=== PATIENT | female | born 1945 | race Caucasian/White ===

== ENCOUNTER 2017-04-04 06:37 | Inpatient (IN) | payer OTHER ==
[2017-03-11 11:19] VITALS: BMI 36.0
--- NOTE | 2017-03-11 11:51 | PAT Medication Instructions ---
Service Date Mar 11, 2017. Current Home Medication List Albuterol Hfa (Ventolin Hfa), 2 PUFFS INH Q6H PRN for PRN Aspirin (Aspirin Ec), 81 MG PO HS Calcium/Vitamin D (Os-Derek 500 Plus D), 1 TAB PO BID Fish Oil ([place]-3), 1 CAP PO QAM Fluticasone Prop/Salmeterol (Advair Diskus 250-50 Mcg/Dose), 2 PUFF INH QAM Lisinopril (Zestril), 10 MG PO QAM Metformin Hcl (Glucophage), 850 MG PO QAM Multivitamin (Multivitamin), 1 TAB PO QAM Prednisone (Prednisone), 10 MG PO QAM Simvastatin (Zocor), 10 MG PO HS Theophylline Ext Rel (Dragan-Dur Ext Rel), 300 MG PO QAM Tiotropium [place] (Spiriva Handihaler), 1 CAP INH QAM Medication Instructions For Your Scheduled Surgery - Hold the following medications 2 weeks prior to surgery: Fish Oil ([place]-3), 1 CAP PO QAM - Hold the following medications 48 hours prior to surgery: Metformin Hcl (Glucophage), 850 MG PO QAM - Hold the following medications the morning of surgery: Lisinopril (Zestril), 10 MG PO QAM Multivitamin (Multivitamin), 1 TAB PO QAM Calcium/Vitamin D (Os-Derek 500 Plus D), 1 TAB PO BID - Take the following medications the morning of surgery with a sip of water OTHERWISE NOTHING TO EAT OR DRINK AFTER MIDNIGHT: Albuterol Hfa (Ventolin Hfa), 2 PUFFS INH Q6H PRN for PRN (use if needed; BRING TO HOSPITAL) Prednisone (Prednisone), 10 MG PO QAM Theophylline Ext Rel (Dragan-Dur Ext Rel), 300 MG PO QAM Tiotropium [place] (Spiriva Handihaler), 1 CAP INH QAM Fluticasone Prop/Salmeterol (Advair Diskus 250-50 Mcg/Dose), 2 PUFF INH QAM - Take the following medications as scheduled the night before surgery: Albuterol Hfa (Ventolin Hfa), 2 PUFFS INH Q6H PRN for PRN Simvastatin (Zocor), 10 MG PO HS Aspirin (Aspirin Ec), 81 MG PO HS Calcium/Vitamin D (Os-Derek 500 Plus D), 1 TAB PO BID If you have any questions please call us at [phone] or [phone] or [phone]
[2017-03-11 12:32] LABS: BASO % 0.2 %; BASO ABS # 0.02 K/uL (0-0.2); COMPLETE YES; EOS % 0.6 %; IG% 0.3 %; LYMPH ABS # 1.55 K/uL (1.2-3.4); MEAN CELL VOLUME 94.6 fL (80-100); MEAN CORPUSCULAR HEMOGLOBIN 30.9 pg (25-34); MEAN CORPUSCULAR HGB CONC 32.6 g/dl (32-36); MEAN PLATELET VOLUME 10.3 fL (7.4-10.4); MONO % 3.6 %; NEUT % 80.3 %; PLATELET COUNT 230 K/uL (130-400); RED BLOOD COUNT 4.44 M/uL (4.2-5.4); WHITE BLOOD COUNT 10.34 K/uL (4.8-10.8)
[2017-03-11 12:39] LABS: URINE APPEARANCE CLEAR (CLEAR); URINE BILIRUBIN NEG (NEG); URINE COLOR YELLOW; URINE NITRITE NEG (NEG); URINE SPECIFIC GRAVITY 1.021 (1.000-1.030); UROBILINOGEN NEG (NEG)
[2017-03-11 12:40] LABS: INR 0.9 (0.9-1.1); PARTIAL THROMBOPLASTIN RATIO 0.9
[2017-03-11 12:49] LABS: MANUAL MICROSCOPIC REQUIRED? NO; REVIEW REQ? NO
[2017-03-11 14:00] LABS: BUN/CREATININE RATIO 19.5 (10-20); CALCIUM 10.4 mg/dl (8.5-10.1); CREATININE 1.01 mg/dl (0.60-1.20); POTASSIUM 5.5 mmol/L (3.5-5.1)
--- NOTE | 2017-04-03 17:30 | HISTORY & PHYSICAL EXAMINATION ---
DATE OF ADMISSION: 04/04/2017 CHIEF COMPLAINT: Cuff arthropathy of the left shoulder. HISTORY OF PRESENT ILLNESS: Aurelia is a pleasant 71-year-old female who has been dealing with significant left shoulder pain. She initially injured her left shoulder when she fell underneath the car back in October. She has no significant decrease in range of motion of her shoulder since that time. X-rays have showed advanced osteoarthritis of her shoulder. She has a lot weakness of her rotator cuff and after failing conservative treatment, she elected to proceed with a reverse left total shoulder arthroplasty. PAST MEDICAL HISTORY: Significant for noninsulin dependent diabetes, hypertension, hyperlipidemia, asthma, osteoarthritis, and obesity. PAST SURGICAL HISTORY: Significant for bowel obstruction in 2009. MEDICATIONS: Include Spiriva 1 capsule daily, Advair 1 puff daily, metformin 850 mg twice a day, theophylline 300 mg as needed, lisinopril 10 mg daily, prednisone 5 mg daily, Ventolin inhaler as needed, simvastatin 10 mg daily, and aspirin 81 mg daily. ALLERGIES: None. FAMILY HISTORY: Noncontributory. SOCIAL HISTORY: She is single and lives alone. She never drinks. She denies any tobacco or IV drug use. She is very active. REVIEW OF SYSTEMS: She complains of left shoulder pain. All other pertinent review of systems is negative. PHYSICAL EXAMINATION: GENERAL: She is awake, alert and orient x3. She is in no apparent distress. She is very pleasant. HEENT: Pupils are equal, round and reactive to light. Extraocular movements intact. Oral mucosa is pink and moist. HEART: Regular rate per radial pulse. LUNGS: Marcia symmetrically bilaterally with no audible breath sounds. ABDOMEN: Soft, nontender, and nondistended. MUSCULOSKELETAL: On physical examination, she has decreased range of motion about 100 degrees of forward flexion and 100 degrees of abduction. She has crepitus throughout. She has 3/5 muscle strength with full can testing and 4/5 muscle strength with external rotation. Negative belly press test. IMAGING DATA: X-rays of the left shoulder do show advanced osteoarthritis with some posterior wear of the glenoid. There is joint space narrowing and osteophyte formation. IMPRESSION: Advanced osteoarthritis of the left shoulder with insufficient rotator cuff. PLAN: She has so much weakness on exam and given her age and her size, I am going to proceed with a reverse left shoulder arthroplasty. Postoperatively, she will be placed in an arm sling and kept overnight in the hospital for postoperative medical management.
[2017-04-04] VITALS (10 sets, daily range): BP systolic 92–150; BP diastolic 55–83; PULSE 74–96; TEMP 36.3–36.8; O2SAT 92–96; Ht 154.9 cm; Wt 86.1 kg
[~2017-04-04] VITALS: Ht 154.9 cm; Wt 86.1 kg
[2017-04-04] MEDS: TRANEXAMIC ACID INJ 1,000 MG in SYRINGE 0 ML IV SCH ×2 (06:30→08:20)
[~2017-04-04 06:37] MED LIST: ACETAMINOPHEN 500 MG TAB PO SCH; ADVIN25050 INH; ASPI81TA28 PO; CALC500C70 PO; CEFAZOLIN 2000MG IV PUSH 10 ML IV SCH; FAMOTIDINE 20 MG TAB PO SCH; GABAPENTIN 300 MG CAP PO SCH; LACTATED RINGER'S 1000ML 1,000 ML IV SCH; LACTATED RINGER'S 1000ML IV SCH; LISI-461 PO; METF-383 PO; MULT-506 PO; OMEG10007 PO; PRED-301 PO; ROPIVACAINE 5MG/ML 30 ML 150 MG, BUPIVACAINE 0.5% MPF INJ 30 ML, EpINEphrine HCL INJ 0.... INFIL SCH; SIMV10TA2 PO; SPRIN/30 INH; THEO300T14 PO; VNTHFA/IN INH
[2017-04-04] MEDS ORDERED: ROPIVACAINE 0.5% 5 MG/ML 30 ML VIAL ONE (06:40)
[2017-04-04] MEDS ORDERED: EpINEphrine INJ 1MG/ML AMP 1 MG/ML AMP ONE (06:40)
[2017-04-04] MEDS ORDERED: BUPIVACAINE 0.25% 30 ML VIAL ONE (06:40)
[2017-04-04] MEDS ORDERED: CLONIDINE HCL 100 MCG/ML SYRINGE ONE (06:42)
--- NOTE | 2017-04-04 06:42 | History & Physical Bridge Note ---
H&P Re-Evaluation Bridge Note: I have examined the patient, reviewed the History & Physical and in the interval since the performance of the History & Physical I have noted the following changes of clinical significance: No changes noted
[2017-04-04] MEDS ORDERED: ATROPINE SULFATE 0.1 MG/ML 5ML SYR IV PRN (07:30)
[2017-04-04] MEDS ORDERED: MEPERIDINE HCL 25 MG/ML CARP IV PRN (07:30)
[2017-04-04] MEDS ORDERED: FLUMAZENIL 0.1 MG/1 ML 10 ML VIAL IV PRN (07:30)
[2017-04-04] MEDS ORDERED: PHENYLEPHRINE 100MCG/ML 5ML SYR IV PRN (07:30)
[2017-04-04] MEDS ORDERED: ONDANSETRON INJ 2 MG/ML 2 ML VIAL IV PRN ×2 (07:30→10:30)
[2017-04-04] MEDS ORDERED: EpHEDrine SULFATE INJ 50 MG/ML AMP IV PRN (07:30)
[2017-04-04] MEDS ORDERED: NALOXONE HCL 0.4 MG/1 ML VIAL/CARP IV PRN ×2 (07:30→10:30)
[2017-04-04] MEDS ORDERED: FENTANYL CITRATE INJ 50 MCG/1 ML 2 ML VIAL IV PRN (07:30)
[2017-04-04] MEDS ORDERED: LABETALOL HCL IV 5 MG/ML 20ML IV PRN (07:30)
[2017-04-04] MEDS ORDERED: HYDROmorphone INJ 2 MG/ML SYR/VIAL IV PRN (07:30)
[2017-04-04] MEDS ORDERED: ORTHO JOINT ANESTHETIC ONE (08:12)
[2017-04-04] MEDS ORDERED: BACITRACIN 50000 UNIT VIAL ONE (08:13)
[2017-04-04] MEDS ORDERED: FENTANYL CITRATE INJ 50 MCG/1 ML 2 ML VIAL ONE (08:14)
[2017-04-04] MEDS ORDERED: MIDAZOLAM HCL 1 MG/ML 2ML VIAL ONE (08:14)
[2017-04-04] MEDS ORDERED: NovoLIN-R INSULIN PER UNIT CHARGE ONE ×2 (08:53→11:15)
[2017-04-04] MEDS ORDERED: HYDROCORTISONE SOD SUCCINATE 100 MG/2 ML VIAL ONE (09:08)
[2017-04-04] MEDS ORDERED: ESMOLOL HCL 10 MG/ML 10 ML VIAL ONE (09:08)
[2017-04-04] MEDS ORDERED: LIDOCAINE HCL 2% 2 ML VIAL (20MG/ML) ONE (09:40)
[2017-04-04] MEDS ORDERED: PROPOFOL IV EMULSION 10 MG/ML 20 ML VIAL IV ONE ×2 (09:40→09:51)
[2017-04-04] MEDS ORDERED: SUCCINYLCHOLINE CHLORIDE 20 MG/ML 10 ML VIAL IV ONE (09:40)
[2017-04-04] MEDS ORDERED: ONDANSETRON INJ 2 MG/ML 2 ML VIAL ONE (09:40)
[2017-04-04] MEDS ORDERED: EpHEDrine SULFATE 50MG/5ML SYR ONE (09:40)
[2017-04-04] MEDS ORDERED: PHENYLEPHRINE HCL INJ 10 MG/ML VIAL ONE (10:09)
--- NOTE | 2017-04-04 10:20 | [facility] Post Operative Brief Note ---
Immediate Operative Summary Operative Date Apr 04, 2017. Pre-Operative Diagnosis Advanced osteoarthritis of the left shoulder with insufficient rotator cuff. Post-Operative Diagnosis Advanced osteoarthritis of the left shoulder with insufficient rotator cuff. Procedure(s) Performed Left Reverse Total Shoulder Arthroplasty Surgeon Jorden Basketball Coach Surgeon(s) Sam Duncan PA-C Estimated Blood Loss 200ml Findings as above Specimens A: Left Humeral Head- bone and tissue Complication(s) None Disposition Recovery Room / PACU
[2017-04-04] MEDS ORDERED: METOCLOPRAMIDE HCL INJ 5 MG/ML 2 ML VIAL IV PRN (10:30)
[2017-04-04] MEDS ORDERED: SOD PHOSPHATE/SOD BIPHOSPHATE ENEMA 132 ML BTL PR PRN (10:30)
[2017-04-04] MEDS ORDERED: GLUCOSE 10 TABS/TUBE PO PRN (10:30)
[2017-04-04] MEDS ORDERED: ACETAMINOPHEN IV 1,000 MG in EMPTY BAG 0 ML IV SCH (10:30)
[2017-04-04] MEDS ORDERED: GLUCAGON FOR INJ 1 MG VIAL SQ PRN (10:30)
[2017-04-04] MEDS ORDERED: BISACODYL 10 MG SUPP PR PRN (10:30)
[2017-04-04] MEDS ORDERED: ALBUTEROL HFA 8 GM INHALER INH PRN (10:30)
[2017-04-04] MEDS ORDERED: GLUCOSE 40% GEL 15 GM TUBE PO PRN (10:30)
[2017-04-04] MEDS ORDERED: DEXTROSE 50% 50 ML SYR IV PRN (10:30)
[2017-04-04] MEDS ORDERED: OXYCODONE HCL IR 5 MG TAB (IMMEDIATE RELEASE) PO PRN (10:30)
[2017-04-04] MEDS ORDERED: MAGNESIUM HYDROXIDE SUSP 30 ML UDC PO PRN (10:30)
[2017-04-04] MEDS ORDERED: MoRPHine SULFATE 2 MG/ML CARP IV PRN (10:30)
--- NOTE | 2017-04-04 11:14 | DIAGNOSTIC IMAGING REPORT ---
L SHOULDER MIN 2 VIEWS ROUTINE HISTORY: 71 years-old Female Post shoulder surgery status post left shoulder arthroplasty. Degenerative joint disease. COMPARISON: Left shoulder radiographs 03/03/2017, CT chest 03/05/2017. TECHNIQUE: 2 views of the left shoulder FINDINGS: Postoperative changes compatible with reverse left shoulder total joint arthroplasty. There is satisfactory alignment. No periprosthetic fracture or retained foreign body. Skin martha and surgical drain in place with expected postsurgical swelling and deep tissue air. There is blunting of the left costophrenic angle with linear subsegmental opacities suggesting atelectasis and/or scarring. IMPRESSION: Status post reverse left total shoulder arthroplasty without complication identified. The above report was generated using voice recognition software. It may contain grammatical, syntax or spelling errors. Electronically signed by: Kip Cordova M.D. 04/04/2017 11:13 AM Dictated Date/Time: 04/04/2017 11:11 AM
[2017-04-04] MEDS ORDERED: NURSING VERBAL MED ORDER ONE (11:30)
--- NOTE | 2017-04-04 12:11 | Anesthesiology Progress Note ---
Anesthesia Post Op Note Date & Time Apr 04, 2017 at 12:10 Vital Signs Pain Intensity: 0 Vital Signs Past 12 Hours Date Time Temp Pulse Resp B/P (MAP) Pulse Ox O2 Delivery O2 Flow Rate FiO2 04/04/17 11:25 36.6 89 16 103/57 93 Nasal Cannula 3 04/04/17 11:15 89 16 100/60 96 Room Air 04/04/17 11:05 85 16 100/58 95 Oxymask 10 04/04/17 10:55 90 16 106/67 96 Oxymask 10 04/04/17 10:46 36.5 98 16 95/60 96 Oxymask 10 04/04/17 08:06 93 16 92 Room Air 04/04/17 07:08 36.7 96 20 150/83 94 Room Air Notes Mental Status: alert / awake / arousable, participated in evaluation Pt Amnestic to Procedure: Yes Nausea / Vomiting: adequately controlled Pain: adequately controlled Airway Patency, RR, SpO2: stable & adequate BP & HR: stable & adequate Hydration State: stable & adequate Anesthetic Complications: no major complications apparent The patient did well. She was given insulin preoperatively and in the PACU for elevated BSG.
[2017-04-04] MEDS ORDERED: PHARMACY GLYCEMIC MGMT CONSULT PRN (12:18)
[2017-04-04] MEDS ORDERED: INSULIN GLARGINE SOLOSTAR 100 UNITS/ML 3 ML PEN SC ONE ×3 (12:30→21:00)
--- NOTE | 2017-04-04 12:37 | OPERATIVE REPORT ---
DATE OF OPERATION: 04/04/2017 PREOPERATIVE DIAGNOSIS: Severe osteoarthritis with insufficient rotator cuff of the left shoulder. POSTOPERATIVE DIAGNOSIS: Same. PROCEDURE: Left reverse total shoulder arthroplasty. SURGEON: Dr. Emilio Leonardo. COLORECTAL SURGEON: Sam Duncan PA-C, whose assistance was necessary for positioning of the arm and helping with instrumentation. ANESTHESIA: General with left interscalene nerve block. COMPLICATIONS: None. CONDITION: Stable to PACU. IMPLANTS USED: I used a [employer] comprehensive reverse left total shoulder arthroplasty system with a size 9 mini stem, a size 25 mm mini baseplate with superior and inferior locking screws and a central screw, a 36 mm standard eccentric glenosphere and a standard humeral tray and bearing. INDICATIONS: Aurelia is a pleasant 71-year-old female who has been having shoulder pain, but then fell recently and has been unable to raise her arm. X-rays and clinical examination were diagnostic for severe arthritis with possible cuff tear. She is a fairly obese. She cannot raise her arm and given her age, I thought she would do best with a reverse shoulder replacement regardless of her rotator cuff. OPERATION AND FINDINGS: On 04/04/2017, she arrived at [facility] for the above procedure. She was seen in the preoperative holding area and the operative extremity was identified and signed. She was given a preoperative antibiotic and a left interscalene nerve block. She was taken back to the operating room, laid on the table in supine position and put under general anesthesia. She was then put into the beachchair position. The left shoulder was prepped and draped in sterile fashion. Time-out was done and the patient and operative extremity was properly identified. A deltopectoral approach was used. Dissection was taken down through the fascia and the anterior shoulder was exposed. The long head of the biceps tendon was tenotomized and the subscapularis was tenotomized off the lesser tuberosity with a centimeter of cuff tissue remaining. The proximal humerus was exposed. There were some of the supraspinatus was still intact, but I just released it for better exposure. The infraspinatus and teres minor of course were left intact. A canal finding reamer was sent down the center of the humeral canal. Sequential reaming up to a size 9 reamer was done. Off that reamer, a proximal humeral resection guide was placed. The proximal humerus was resected at 135 degrees of inclination and 20 degrees of retroversion. The head was removed and the glenoid was exposed. Time was spent doing a complete circumferential capsular and labral release. The guide was placed in the center of the glenoid and a guide pin was placed in 10 degrees of inclination. The 25 mm mini base plate was then reamed and the final baseplate was then impacted into place. A 25 mm central screw was placed followed by superior and inferior locking screw. A 36 mm eccentric glenosphere was then impacted into place. The proximal humerus was then exposed. Sequential broaching up to a size 9 broach was done. A standard humeral trial was used. The shoulder was reduced, brought through a full range of motion and felt to be stable. The trials were then removed and the final size 9 mini stem was impacted into place and the standard humeral tray and bearing were snapped together and the ring lock mechanism was engaged. The humeral tray was placed on the humeral stem, the shoulder was reduced, brought through a full range of motion and felt to be stable. The subscapularis was then tenodesed back to the lesser tuberosity with transosseous FiberWire sutures and [id number] sutures. The wound was then irrigated with 3 liters of normal saline solution with bacitracin. The surrounding soft tissues were injected with 100 mL of orthopedic pain control cocktail. A drain was placed. Skin was closed with 2-0 Vicryl, 3-0 V-Loc suture and martha. She was then placed in a soft dressing and a regular arm sling. She was then extubated, transferred to a [facility] and taken to the postanesthesia care unit in stable condition. She tolerated the procedure well. I attest to the content of the Intraoperative Record and any orders documented therein. Any exception s are noted below.
--- NOTE | 2017-04-04 12:47 | Pharmacy Progress Note ---
Glycemic Control Intl Consult Date of Service Apr 04, 2017. Scope Glycemic Pharmacist consulted by Dr Leonardo on 04/04/17 for glycemic control and to write orders per [facility] inpatient glycemic control protocol Objective Weight (Kilograms): 86.10 Accuchecks BSG (last 24hrs): Test 04/04/17 06:57 04/04/17 10:48 04/04/17 12:22 Bedside Glucose 163 mg/dl (70-90) 220 mg/dl (70-90) 173 mg/dl (70-90) Recent Pertinent Medications Outpatient Anti-diabetic Regimen: * metformin 850 mg PO daily Risk Factors for Insulin Resistance: * Steroids: hydrocortisone 100 mg IV x 1 intraoperatively, dexamethasone 4 mg topically * Recent Surgery: POD 0 for shoulder surgery * Diet: type 2 diabetic diet Assessment & Plan ASSESSMENT: * ADA & AACE recommend a goal blood sugar range 140-180 mg/dl for the majority of critically ill & non-critically ill patients. However, more stringent targets may be selected in individual cases. Will utilize more stringent goal of 110-140mg/dl based on patient age & comorbidities. Additionally, tighter glycemic control is warranted to facilitate wound healing. * Ms Del Rosario is a 71 y/o F with a PMH of hypertension, asthma, and obesity who presents for shoulder surgery. She chronically takes prednisone 10 mg PO daily and was given stress dosing of hydrocortisone today. Rita-operatively, the patient's blood sugar was 163 mg/dL and post-operatively 220 mg/dL. She received a total of 7 units of regular insulin around surgery. * Since the patient received hydrocortisone (not dexamethasone), the patient's blood sugar will still be affected but not for as long. Between weight-based stress of 2 and 3 full 24 hour dose will be given now for Lantus. A scale is available for this evening. It is unclear how the patient will respond to hydrocortisone and Lantus dosing therefore a higher dose scale will be available for tomorrow morning with lowest-dose being full 24 hour weight-based stress of 1. * For Novolog, steroids were still administered to the patient therefore will utilize weight-based stress of 3 for all coverage including overnight checks. This will be loosened in subsequent days as the effects of the steroids is diminished. * Pt is maintained on oral antidiabetic agents as an outpatient * Oral agents are not recommended for inpatient use d/t drug interactions, changing PO intake, and difficulty titrating for acute hyper/hypoglycemia. ADA recommends re-initiating outpatient oral agents 1-2 days prior to discharge if/ when appropriate if they were held on admission. * Will hold oral agents for admission and utilize SQ basal bolus insulin regimen which is the recommended regimen for inpatient glycemic control. * Will initiate weight based insulin dosing for insulin gisselle patient and titrate based on BSG trends. PLAN FOR INPATIENT GLYCEMIC CONTROL: * Holding outpatient oral diabetes medications - restart POD 2 or 3 * Basal insulin with LANTUS 35 units SQ x 1 then 0-15 units SQ hs; for POD 1 : Lantus 15-30 units SQ x 1 in the morning. Evening dose to be determined by patient response * Correctional Insulin with NOVOLOG per scale ACHS or Q6hrs while NPO * Goal Range: Low 110 mg/dL - High 140 mg/dL * Correction Factor: 20 mg/dL/unit * Nutritional / Prandial insulin per carb ratio of 1 unit per 6 grams CHO consumed * Please note that the plan above was derived based on current level of insulin resistance and hospital stress. These recommendations are appropriate for inpatient admission only. Plan of care upon discharge will need to be reassessed to avoid potential outpatient hypo/hyperglycemia. Thank you.
[2017-04-04] MEDS: POTASSIUM CHLORIDE INJ 10 MEQ in SODIUM CHLORIDE 0.9% 1000ML 1,000 ML IV SCH ×2 (13:14→22:28)
[2017-04-04] MEDS: INSULIN ASPART 100 UNITS/ML 3 ML PEN SC SCH ×3 (13:19→21:08)
[2017-04-04] MEDS: KETOROLAC TROMETHAMINE 15 MG/ML VIAL IV. SCH ×2 (14:08→20:41)
[2017-04-04] MEDS: ACETAMINOPHEN IV 1,000 MG in EMPTY BAG 0 ML IV SCH ×2 (14:37→22:25)
[2017-04-04] MEDS: CALCIUM 600MG + VIT D 400 IU TAB PO SCH (20:41)
[2017-04-04] MEDS: CEFAZOLIN IV 2,000 MG in SYRINGE 0 ML IV SCH (20:41)
[2017-04-04] MEDS: DOCUSATE SODIUM 100 MG CAP PO SCH (20:42)
[2017-04-04] MEDS ORDERED: ASPIRIN 81 MG ECTAB PO SCH (21:00)
[2017-04-04] MEDS ORDERED: SIMVASTATIN 10 MG TAB PO SCH (21:00)
[2017-04-04] MEDS ORDERED: SENNA 8.6 MG TAB PO SCH (21:00)
[2017-04-05] MEDS: KETOROLAC TROMETHAMINE 15 MG/ML VIAL IV. SCH ×3 (01:48→12:52)
[2017-04-05 03:39] VITALS: BP 129/83; PULSE 74; TEMP 36.4; O2SAT 96
[2017-04-05] MEDS: CEFAZOLIN IV 2,000 MG in SYRINGE 0 ML IV SCH (04:09)
[2017-04-05] MEDS: INSULIN ASPART 100 UNITS/ML 3 ML PEN SC SCH ×4 (04:12→12:52)
[2017-04-05] MEDS: ACETAMINOPHEN IV 1,000 MG in EMPTY BAG 0 ML IV SCH (05:39)
[2017-04-05 07:17] LABS: HEMATOCRIT 32.1 % (37-47); MEAN CELL VOLUME 94.7 fL (80-100); MEAN CORPUSCULAR HEMOGLOBIN 30.7 pg (25-34); MEAN CORPUSCULAR HGB CONC 32.4 g/dl (32-36); MEAN PLATELET VOLUME 9.8 fL (7.4-10.4); PLATELET COUNT 181 K/uL (130-400); RED BLOOD COUNT 3.39 M/uL (4.2-5.4); WHITE BLOOD COUNT 9.99 K/uL (4.8-10.8)
[2017-04-05 07:20] VITALS: BP 123/77; PULSE 75; TEMP 36.6; O2SAT 96
[2017-04-05 07:52] LABS: BUN/CREATININE RATIO 20.6 (10-20); CREATININE 1.73 mg/dl (0.60-1.20); POTASSIUM 4.9 mmol/L (3.5-5.1)
[2017-04-05] MEDS ORDERED: RXC5 PO (08:18)
--- NOTE | 2017-04-05 08:19 | Discharge Instructions ---
Discharge Instructions Date of Service Apr 05, 2017. Admission Reason for Admission: Left Shoulder Rotator Cuff Tear Discharge Discharge Diagnosis / Problem: Left reverse total shoulder Discharge Goals Goal(s): Decrease discomfort, Improve function Activity Recommendations Activity Limitations: as noted below . Instructions / Follow-Up Instructions / Follow-Up Activity and Therapy Recommendations: * Wear your sling for 3 weeks, unless otherwise instructed. You may remove your sling to shower and to dress, but otherwise, you should be in your sling at all times, including while sleeping * The shoulder replacement is very stable and you can use your hand while in the sling * Physical Therapy should start about 3-5 days from your day of surgery. Therapy will last about 8-12 weeks * You were shown a series of exercises in the hospital. Do these exercises daily including the exercises you were shown in physical therapy. Medications: * Narcotic You will likely be sent home from the hospital with a prescription for the narcotic pain medication that worked best throughout your stay. * Other medications may be prescribed for specific circumstances. If you have any questions, please call the office at . * Resume previous home medications unless otherwise instructed Showering: You may shower 5 days from the day of surgery. Let the soapy shower water run over the martha. Do not scrub or soak the dressing or the incision. Things To Watch For: * Drainage from the incision site that occurs more than one week after your surgery. * Increased redness at the incision site. * Fever above 102 degrees Fahrenheit. * Unusual chest pain or shortness of breath. * Call [facility] at with any of the above problems Follow-Up Visit: Follow-up with Dr. Leonardo 2-3 weeks after your day of surgery. An appointment was probably scheduled when you signed-up for surgery in the office. If you have any questions call Office Instructions: More detailed instructions as well as Frequently Asked Questions were provided in a folder by our office when you signed-up for surgery. Please review these instructions when you get home. If you have any further questions or concerns, please feel free to call the office at [phone] Current Hospital Diet Patient's current hospital diet: Diabetes Type 2 Diet Discharge Diet Recommended Diet: Diabetes Type 2 Diet Procedures Procedures Performed: Left Reverse Total Shoulder Arthroplasty Pending Studies Studies pending at discharge: no Laboratory Results Hemoglobin A1c Test 04/05/17 06:53 Range/Units Medical Emergencies . Who to Call and When: Medical Emergencies: If at any time you feel your situation is an emergency, please call 911 immediately. . Non-Emergent Contact Non-Emergency issues call your: Surgeon Call Non-Emergent contact if: wound has increased drainage, wound has increased redness . "Provider Documentation" section prepared by Emilio Leonardo. . VTE Core Measure Inpt VTE Proph given/why not?: Treatment not indicated
[2017-04-05] MEDS ORDERED: MULTIVITAMIN TAB PO SCH (09:00)
[2017-04-05] MEDS: DOCUSATE SODIUM 100 MG CAP PO SCH (09:00)
[2017-04-05] MEDS ORDERED: TIOTROPIUM BROMIDE 5 PUFF/90 MCG INH INH SCH (09:00)
[2017-04-05] MEDS ORDERED: PANTOprazole SOD 40 MG TAB PO SCH (09:00)
[2017-04-05] MEDS ORDERED: LISINOPRIL 10 MG TAB PO SCH (09:00)
[2017-04-05] MEDS ORDERED: FLUTICASONE/SALMETEROL 250/50 (ADVAIR) 14 PUFF/1 INHALER INH SCH (09:00)
[2017-04-05] MEDS ORDERED: THEOPHYLLINE 300MG EXTENDED REL TAB PO SCH (09:00)
[2017-04-05] MEDS: CALCIUM 600MG + VIT D 400 IU TAB PO SCH (09:01)
[2017-04-05 09:02] LABS: ESTIMATED AVERAGE GLUCOSE 163 mg/dl; HA1C FLAG Normal (Normal)
[2017-04-05] MEDS: POTASSIUM CHLORIDE INJ 10 MEQ in SODIUM CHLORIDE 0.9% 1000ML 1,000 ML IV SCH (09:03)
--- NOTE | 2017-04-05 10:46 | PROGRESS NOTE ---
DATE: 04/05/2017 CHIEF COMPLAINT: Status post left reverse shoulder arthroplasty postop day #1. PROGRESS: Aurelia was seen and examined at bedside today. Overall, she is doing very well. She has very little pain in her shoulder. She is wearing her sling as instructed and has no complaints. PHYSICAL EXAMINATION: VITAL SIGNS: Her vital signs are all stable on room air. She is voiding on her own. LEFT ARM: The dressing is clean and dry and the drain is to suction. Her radial, median and ulnar nerves were checked and intact at her wrist. Her axillary nerve was not checked yet. LABORATORY DATA: She has an H&H today of 10.4 and 32.1. Her glucose is 116. X-rays postoperatively of the left shoulder showed the prosthesis to be in anatomic alignment without any evidence of fracture, dislocation or loosening. IMPRESSION: Status post left reverse shoulder arthroplasty postop day #1. PLAN: At this point, she is doing well and happy with her progress. She will be seen by physical therapy today for hand, wrist, elbow and pendulum exercises. The nursing staff can change the dressing, pull the drain and we will discharge her to home later today.
[2017-04-05 11:36] VITALS: TEMP 36.6
[2017-04-05 11:40] VITALS: BP 123/80; PULSE 91; O2SAT 92
--- NOTE | 2017-04-05 23:23 | DISCHARGE SUMMARY ---
DISCHARGE DIAGNOSIS: Primary osteoarthritis of the left shoulder with insufficient rotator cuff. PROCEDURE: Reverse left total shoulder arthroplasty on 04/04/[address] Emilio Leonardo. DISCHARGE INSTRUCTIONS: 1. Oxycodone 5 mg every 4 hours as needed for pain, albuterol 2 puffs every 6 hours as needed, aspirin 81 mg daily, Os-Derek 1 tab twice a day, omega 3 fish oil daily, Advair Diskus 2 puffs daily, Zestril 10 mg daily, Glucophage 850 mg daily, multivitamin daily, prednisone 10 mg daily, Zocor 10 mg at night, theophylline 300 mg daily, and Spiriva 1 cap daily. 2. Left arm sling for 3 weeks 3. Follow up with Dr. Leonardo in 2 weeks. Call the office of Dr. Leonardo with any questions or concerns. HOSPITAL COURSE: Aurelia is a pleasant 71-year-old female who presented to my office with acute on chronic left shoulder pain. She was having years of shoulder pain. She then fell and had inability to elevate her arm. She has terrible arthritis and signs of possible rheumatoid arthritis. Given her full history, I felt she was best treated with a reverse shoulder arthroplasty. On 04/04/2017, she arrived at [facility] and underwent a reverse left shoulder arthroplasty without complications. She had a general anesthetic and a left interscalene nerve block. Postoperatively, she was discharged to general orthopedic floor. Her hospital course was uneventful and on postop day #1, her H&H was stable at 10.4 and 32.1. She was able to participate well with physical therapy. The dressing was changed, the drain was pulled and she was subsequently discharged to home with the above instructions.
== END 2017-04-05 13:11 | disposition home health service (06) | DRG 483 ==
LOC: C.ACU 06:37 → C.3E 07:02 → ENRESERV 11:27
PROVIDERS: ADMIT Orthopaedic Surgery; ATTEND Orthopaedic Surgery
PROC: 0RRK00Z Replacement of Left Shoulder Joint with Reverse Ball and Socket Synthetic Substitute, Open Approach (ICD-10-PCS; principal; 2017-04-04 09:20)
DX: M19.012 Primary osteoarthritis, left shoulder (principal); E11.9 Type 2 diabetes mellitus without complications; I10 Essential (primary) hypertension; E78.5 Hyperlipidemia, unspecified; E66.9 Obesity, unspecified; Z79.84 Long term (current) use of oral hypoglycemic drugs; Z68.35 Body mass index [BMI] 35.0-35.9, adult